=== PATIENT | male | born 1965 | race African-American/Black ===

== ENCOUNTER 2024-02-09 18:02 | Emergency (ER) | payer MEDICAID, OTHER ==
[2024-02-09] MEDS ORDERED: Methocarbamol 500 MG TAB ONE (18:44)
[2024-02-09] MEDS ORDERED: Ketorolac Tromethamine 30 MG (1 mL) VIAL ONE (18:44)
== END 2024-02-09 19:37 | disposition home or self-care (01) ==
LOC: MADERS 18:02
DX: S39.012A Strain of muscle, fascia and tendon of lower back, initial encounter (principal); F17.210 Nicotine dependence, cigarettes, uncomplicated; I10 Essential (primary) hypertension; V86.95XA Unspecified occupant of 3- or 4- wheeled all-terrain vehicle (ATV) injured in nontraffic accident, initial encounter
CPT/HCPCS: 72128; 72131; 96372; J1885